=== PATIENT | male | born 1985 | race Caucasian/White ===

== ENCOUNTER 2016-08-28 18:41 | Emergency (ER) | payer OTHER ==
[2016-08-28 18:59] VITALS: BP 145/80; PULSE 96; RESP 20; O2SAT 99
--- NOTE | 2016-08-28 19:29 | DRSVH ---
PROCEDURE: X-RAY RIGHT SHOULDER, MINIMUM TWO VIEWS ([id number]) INDICATIONS: injury, pain, deformity TECHNIQUE: 2 views of the shoulder were acquired. COMPARISON: None. FINDINGS: Bones: Type III acromioclavicular joint separation noted. Bone fragment noted inferior to the displ aced clavicular head likely represents a clavicle acute avulsion fracture. The old right clavicular mid shaft fracture is noted. Visualized ribs appear intact. Soft tissues: No suspicious soft tissue calcifications. IMPRESSION: 1. Type III acromioclavicular joint separation. 2. Probable distal clavicle avulsion fracture. Dictated by: Dina Joel MD, PhD on 08/28/2016 at 19:26 Approved by: Dina Joel MD, PhD on 08/28/2016 at 19:28
--- NOTE | 2016-08-28 20:21 | ED.REPORT ---
HPI-Extremity Problem Upper Date of Service Aug 28, 2016 ED Provider: Bhavik Wilson MD Pt is a 31 y.o. male who presents to the ED c/o right shoulder injury onset 1829. Pt states that he was on a ladder approximately 4ft off the ground when the dog bumped the ladder causing him to fall onto his right shoulder. He denies LOC, numbness, or any additional injuries. He reports a hx of clavicular fracture and dislocation on the right from a hockey injury when he was 17. Pt is not a local resident. Nursing Notes Stated Complaint: RIGHT SHOULDER INJURY Chief Complaint: Extremity Trauma Nursing Notes Reviewed: Yes ([employer]WE[employer], R-B Acquisition not reconciled) Allergies: Coded Allergies: No Known Allergies (Unverified , 08/28/16) Scheduled PRN Ibuprofen (Ibuprofen) 400 Mg Tablet 400-800 MG PO Q6H PRN PRN For Pain General Time Seen by MD: 20:19 Chief Complaint Shoulder injury right Hx Obtained From: Patient Arrived By: Walk-in Onset Occurred: 1 - 4 hours ago Symptom Duration: Since onset Caused by: Accidental, Fall from height... (3-6 feet) Location: : Shoulder right Quality: Painful Severity: Current: Severe Past Medical History Past Medical History Healthy Past Surgical History None reported Social History Other Social History: From out of town Ambulatory Status Independent Review of Systems Musculoskeletal: Reports: Joint pain (Right shoulder), Denies: Back pain Neurologic: Denies: Change LOC, Headache, Numbness Complete sys rev & neg: except as marked. Physical Exam Initial Vital Signs Vital Signs (First) Date Time Temp Pulse Resp B/P Pulse Ox O2 Delivery O2 Flow Rate FiO2 08/28/16 18:59 96 20 145/80 99 Room Air 08/28/16 20:51 37 Initial VS: Reviewed, Vital signs normal Head / Eyes: Atraumatic, Normocephalic, PERRL Respiratory: Breath sounds normal, No respiratory distress Cardiovascular: Regular rate & rhythm, Intact distal pulses Abdomen / GI: No distention Lower Extremities: Vascular intact, Neuro intact Skin: Warm, Dry, No cyanosis Neurologic: Alert, Oriented, Nonfocal Psychiatric: Mood/affect normal, Behavior normal, Normal thought content General/Constitutional: Awake, Alert, Well appearing, Well developed, Well hydrated, Well nourished, Not toxic appearing Appearance / Presentation: Positive: In pain, Uncomfortable No additional signs of trauma, other than right shoulder Upper Extremity / MS: Neurologic intact, Vascular intact Clavicle / Shoulder Girdle: Positive: AC lig tender R Right Shoulder: Positive: Deformity present Marked step-off over right AC joint. Interpretation & Diagnostics X-Ray Interpretation Xray Interpretation: IMPRESSION: 1. Type III acromioclavicular joint separation. 2. Probable distal clavicle avulsion fracture. Dictated by: Dina Joel MD, PhD on 08/28/2016 at 19:26 Approved by: Dina Joel MD, PhD on 08/28/2016 at 19:28 Study Performed: PROCEDURE: X-RAY RIGHT SHOULDER, MINIMUM TWO VIEWS ([id number]) Re-Eval/Medical Decision Med Decision/Clinical Course This is a previously healthy 31-year-old [id number] male who was on a ladder, dog knocked over fell about 4 feet and landed directly onto his right shoulder. He is history of a dislocation or clavicle fracture of that shoulder. Denies any other injury. Denies numbness weakness paresthesia prescribed complaining of pain. On exam he has a clinical step-off and tenderness at the before meals joint. However the arm is otherwise neurologically intact. No additional signs of trauma elsewhere appreciated. Radiographs demonstrate a grade 3 before meals separation and what appears to be a probable avulsion fracture of the clavicle, although the acuity that is less clear-however given the before meals separation clinically is new, it is likely acute. A CPK medicine. Is placed in a sling for when necessary use, and is being discharged on a course ibuprofen,with a few oxycodone. They are given a referral to orthopedics for follow up. Source of Hx: Old records Differential Diagnosis: Positive: Avulsion injury, Clavicle fracture, Fracture , Shoulder ligament injury (AC separation), Negative: Abrasion, Abscess, Amputation, Arterial occlus/ischemia, Cellulitis , Colles' fracture, Compartment syndrome, Deep vein thrombosis, Elbow dislocation, Elbow fracture, Finger dislocation, Gamekeepers thumb, Joint effusion, Laceration, Neurovascular injury, Shoulder disloc ant, Shoulder disloc post Counseled Regarding: Diagnosis, Lab results, Need for follow-up, When/why to return to ED Discharge & Departure Impression: Primary Impression: Acromioclavicular joint separation, type 3 Encounter type: initial encounter Laterality: right Qualified Code: S43.101A - Unspecified dislocation of right acromioclavicular joint, initial encounter Additional Impression: Right clavicle fracture Encounter type: initial encounter Clavicle location: lateral end Fracture type: closed Fracture alignment: displaced Qualified Code: S42.031A - Displaced fracture of lateral end of right clavicle, initial encounter for closed fracture Disposition: Home Discharge Condition All VS Reviewed: Yes Condition: Improved Additional Instructions: 1. Your exam and x-ray revealed that you have what is referred to as a shoulder separation - the ligaments attach the clavicle to the scapula have been torn. A small piece of the clavicle appears to been torn off as well-this is referred to as an avulsion fracture. 2. Fortunately, these tend to heal quite well and do not generally require surgical correction. However there can be a resultant cosmetic abnormality with the clavicle sticks up further on the right side than the left. If he desires, you can follow with the orthopedist-call for an appointment with Dr. Zavala. 3. Continue to ice 20-30 minutes at a time over the next 24 hours. Do not apply ice directly against the skin. 4. Use the sling for comfort-the goal is to get her arm out of the sling as frequently, and as soon as tolerated. 5. Take ibuprofen 400-800 mg 3 times a day for pain. 6. If needed for more severe pain the first few days, take oxycodone/APAP 5/ 325 to 2 tabs every 6 hours if needed. Use sparingly. Note: This medication contains narcotic and causes drowsiness. No driving or operating machinery for at least 4 hours after taking. 7. Return if new or worsening symptoms occur. Referrals: NOPCP (PCP) Scribe Attestation Portions of this note were transcribed by Rene Hugo. I, Dr. Wilson personally performed the history, physical exam and medical decision-making; I reviewed and confirmed the accuracy of the information in the transcribed note. Signed by: Angely Chandler, 08/28/16 and 2319 Bhavik Wilson MD Aug 28, 2016 20:21 RENE HUGO Aug 28, 2016 20:27
[2016-08-28] MEDS ORDERED: Ondansetron 8 mg ODT Tablet PO ONE (20:30)
[2016-08-28] MEDS ORDERED: HYDROmorphone 1 mg/mL Inj IM ONE (20:30)
[2016-08-28] MEDS ORDERED: _oxyCODONE/APAP 5-325 mg Tablet PO PRN (20:30)
[2016-08-28] MEDS ORDERED: IBUP400T22 PO (20:34)
[2016-08-28 21:22] VITALS: BP 115/76; PULSE 69; RESP 20; O2SAT 100
== END 2016-08-28 22:22 | disposition home or self-care (01) ==
LOC: SED 18:41
DX: S43.101A Unspecified dislocation of right acromioclavicular joint, initial encounter (principal); S42.031A Displaced fracture of lateral end of right clavicle, initial encounter for closed fracture; W11.XXXA Fall on and from ladder, initial encounter; Y92.009 Unspecified place in unspecified non-institutional (private) residence as the place of occurrence of the external cause; Y93.89 Activity, other specified; Y99.8 Other external cause status; Z87.828 Personal history of other (healed) physical injury and trauma
CPT/HCPCS: 73030; 96372; 99284; J1170